=== PATIENT | male | born 1985 | race Caucasian/White ===

== ENCOUNTER 2018-05-16 15:20 | Emergency (ER) | payer SELFPAY ==
[2018-05-16 15:21] VITALS: BMI 21.4
[2018-05-16] MEDS ORDERED: Sodium Chloride 0.9% 1,000 ML IV STA (15:55)
--- NOTE | 2018-05-16 16:00 | ED PDOC ---
Arrival/HPI - General Historian: Patient - History of Present Illness Time/Duration: 4-6 hours Symptom Onset: Sudden Symptom Course: Unchanged Quality: Stabbing Severity Level: 10, Severe - General Chief Complaint: Back Pain Time Seen by Provider: 05/16/18 15:31 - History of Present Illness Narrative History of Present Illness (Text): 05/16/18 15:57 Patient is a 32 year old male with past medical history of nephrolithiasis who presents to the emergency department for left flank pain that started this morning. Patient states that when he woke up he starting experiencing left flank pain. Pain is non-radiating, 12/10 on pain scale. Described it as stabbing in nature, pain is worse with movement. He tried drinking water this morning but vomited shortly after. He states that he took a percocet at approximately 10am with minimal relief in symptoms. States that flank pain feels like when he had kidney stones before in the past. Admits to feeling nauseous. Denies fevers, chills, headaches, dizziness, cp, palpitations, sob, abdominal pain, hematuria, dysuria, changes in bowel habits. (Cynthia Barnett) Past Medical History - Provider Review Nursing Documentation Reviewed: Yes - Infectious Disease Hx of Infectious Diseases: None - Past Medical History Past Medical History: No Previous - Cardiac Hx Cardiac Disorders: No - Pulmonary Hx Respiratory Disorders: No - Neurological Hx Neurological Disorder: No - HEENT Hx HEENT Disorder: No - Renal Hx Kidney Stones: Yes - Endocrine/Metabolic Hx Endocrine Disorders: No - Hematological/Oncological Hx Blood Disorders: No - Integumentary Hx Dermatological Disorder: No - Musculoskeletal/Rheumatological Hx Musculoskeletal Disorders: No - Psychiatric Hx Substance Use: No - Surgical History Hx Appendectomy: Yes - Anesthesia Hx Anesthesia: Yes Hx Anesthesia Reactions: No Hx Malignant Hyperthermia: No Family/Social History - Physician Review Nursing Documentation Reviewed: Yes Family/Social History: Diabetes, Hypertension Smoking Status: Light Smoker < 10 Cigarettes Daily Hx Alcohol Use: Yes Hx Substance Use: No Hx Substance Use Treatment: No Allergies/Home Meds Allergies/Adverse Reactions: Allergies No Known Allergies Allergy (Verified 05/16/18 15:50) Home Medications: Home Meds Medication Instructions Recorded Confirmed oxyCODONE/Acetaminophen [Percocet 1 tab PO Q6 PRN 05/16/18 05/16/18 5/325 mg Tab] Review of Systems - Review of Systems Constitutional: Normal. absent: Fatigue, Fevers Eyes: Normal. absent: Vision Changes ENT: Normal. absent: Hearing Changes Respiratory: Normal. absent: SOB, Cough, Wheezing Cardiovascular: Normal. absent: Chest Pain, Palpitations, Calf Pain Gastrointestinal: Nausea, Vomiting. absent: Abdominal Pain, Constipation, Diarrhea Genitourinary Male: Normal. absent: Dysuria, Hematuria Musculoskeletal: Back Pain Skin: Normal. absent: Rash Neurological: Normal. absent: Headache, Dizziness Physical Exam Vital Signs Reviewed: Yes Temperature: Afebrile Blood Pressure: Normal Pulse: Regular Respiratory Rate: Normal Appearance: Positive for: Non-Toxic, Uncomfortable Pain Distress: Moderate Mental Status: Positive for: Alert and Oriented X 3 - Systems Exam Head: Present: Atraumatic, Normocephalic Pupils: Present: PERRL Extroacular Muscles: Present: EOMI Mouth: Present: Moist Mucous Membranes Neck: Present: Normal Range of Motion Respiratory/Chest: Present: Clear to Auscultation, Good Air Exchange. No: Respiratory Distress Cardiovascular: Present: Regular Rate and Rhythm, Normal S1, S2 Abdomen: Present: Normal Bowel Sounds. No: Tenderness, Distention Back: Present: CVA Tenderness (Left CVA tenderness) Upper Extremity: Present: Normal Inspection, Normal ROM Lower Extremity: Present: Normal Inspection, NORMAL PULSES. No: CALF TENDERNESS Neurological: Present: CN II-XII Intact Skin: Present: Warm, Dry, Normal Color. No: Rashes Psychiatric: Present: Alert, Oriented x 3 Vital Signs Temp Pulse Resp BP Pulse Ox 05/16/18 17:24 98 F 85 19 109/53 L 99 05/16/18 16:25 133/80 05/16/18 15:47 98 F 85 19 133/80 100 Medical Decision Making - Lab Interpretations I have reviewed the lab results: Yes - RAD Interpretation Graphic Artist: Radiologist ED Course and Treatment: 05/16/18 16:04 Patient is a 32 year old male with past medical history of nephrolithiasis who presents to the ED for left sided flank pain that started this morning. Patient states that pain is similar to when he had kidney stones before in the past. Will give Toradol 30mg IVP, Zofran 4mg IVP, NS bolus. Labs and CT abd/pelvis without contrast ordered. 05/16/18 16:40 CT abd/pelvis showing unilateral left obstructive uropathy related to proxiaml left uteral calculus (possible 2 adjacent) measuring 5 x 9 mm. Edematous left kidney noted. No focal urinoma identified. Non-obstructinf tract calculi bilaterally larger and more numerous on the left compared to right (see full report). Patient feeling better. Will discharge home with Motrin, percocet, zofran and flomax. Patient instructed to drink plenty of fluids, and follow up with urology within 3-4 days. Patient also instructed to establish care at the [facility]. (Cynthia Barnett) Seen and examined with resident. 32 year old M p/w L flank pain similar to previous kidney stones. On exam, CVA tenderness, no abdominal tenderness. (Brandyn Luna) - Lab Interpretations Lab Results: 05/16/18 16:00 05/16/18 16:00 Lab Results 05/16/18 16:00: Sodium 139, Potassium 4.1, Chloride 104, Carbon Dioxide 22, Anion Gap 18, BUN 11, Creatinine 1.2, Est GFR ( Amer) > 60, Est GFR (Non- Af Amer) > 60, Random Glucose 100, Calcium 9.5, Total Bilirubin 0.8, AST 27, ALT 52, Alkaline Phosphatase 86, Total Protein 7.9, Albumin 4.7, Globulin 3.2, Albumin/Globulin Ratio 1.4 05/16/18 16:00: WBC 11.8 H, RBC 5.02, Hgb 14.9, Hct 42.9, MCV 85.5, MCH 29.7, MCHC 34.7, RDW 12.4, Plt Count 307, MPV 9.8, Gran % 80.9 H, Lymph % (Auto) 13.2 L, [place] % (Auto) 5.2, Eos % (Auto) 0.5 L, Baso % (Auto) 0.2, Gran # 9.54 H, Lymph # (Auto) 1.6, [place] # (Auto) 0.6, Eos # (Auto) 0.1, Baso # (Auto) 0.02 - RAD Interpretation Radiology Orders: 05/16/18 15:56 ABD & PELVIS W/O PO OR IV CONT [CT] Stat - Medication Orders Current Medication Orders: Discontinued Medications Sodium Chloride (Sodium Chloride 0.9%) 1,000 mls @ 999 mls/hr IV .Q1H1M STA Stop: 05/16/18 16:55 Last Admin: 05/16/18 15:58 Dose: 999 mls/hr eMAR Start Stop Document 05/16/18 15:58 GMI (Rec: 05/16/18 15:59 GMI [id number]) Intravenous Solution Start Date 05/16/18 Start Time 15:58 End Date 05/16/18 End time 17:00 Total Infusion Time 62 Ketorolac Tromethamine (Toradol) 30 mg IVP STAT STA Stop: 05/16/18 15:56 Last Admin: 05/16/18 16:02 Dose: 30 mg MAR Pain Assessment Document 05/16/18 16:02 GMI (Rec: 05/16/18 16:03 GMI [id number]) Pain Reassessment Is this a pain reassessment? Yes Sleep Is patient sleeping during reassessment? No Presence of Pain Presence of Pain Yes Pain Scale Used Pain Scale Used Numeric Description Description Sharp Intensity of Pain at present 10 Pain Behavior Moaning Facial Grimacing Aggravating Factors Changing Position Alleviating Factors Medication IVP Administration Document 05/16/18 16:02 GMI (Rec: 05/16/18 16:03 GMI [id number]) Charges for Administration # of IVP Administrations 1 Ondansetron HCl (Zofran Inj) 4 mg IVP STAT STA Stop: 05/16/18 15:56 Last Admin: 05/16/18 16:03 Dose: 4 mg IVP Administration Document 05/16/18 16:03 GMI (Rec: 05/16/18 16:03 GMI [id number]) Charges for Administration # of IVP Administrations 1 Tamsulosin HCl (Flomax) 0.4 mg PO STAT STA Stop: 05/16/18 16:35 Last Admin: 05/16/18 17:18 Dose: 0.4 mg Disposition/Present on Arrival - Present on Arrival Any Indicators Present on Arrival: No History of DVT/PE: No History of Uncontrolled Diabetes: No Urinary Catheter: No History of Decub. Ulcer: No History Surgical Site Infection Following: None - Disposition Have Diagnosis and Disposition been Completed?: Yes Disposition Time: 16:33 Patient Plan: Discharge - Disposition Diagnosis: Nephrolithiasis Disposition: HOME/ ROUTINE Condition: GOOD Discharge Instructions (ExitCare): Kidney Stones in Adults Additional Instructions: Take Motrin and Percocet as needed for pain Please take Flomax daily and strain your urine for calculi We recommend that you follow up with Urology outpatient Establish care with [facility] Prescriptions: Ibuprofen [Motrin] 600 mg PO Q6H PRN #28 tab PRN Reason: Pain, Moderate (4-7) Ondansetron [Zofran] 4 mg PO Q8H #21 tab oxyCODONE/Acetaminophen [Percocet 5/325 mg Tab] 1 tab PO Q6 #10 tab Tamsulosin HCl [Flomax] 0.4 mg PO DAILY #10 cap.er.24h Referrals: Govind Wells MD [Staff Provider] - Follow up with primary [facility] [Provider Group] - Follow up with primary Forms: [employer] (Mongolian)
--- NOTE | 2018-05-16 16:29 | CT ---
Date of service: 05/16/2018 PROCEDURE: CT Abdomen and Pelvis without intravenous contrast HISTORY: left flank pain, history of nephrolithiasis COMPARISON: 05/11/2016 TECHNIQUE: Unenhanced study. Neither oral nor intravenous contrast administered. She Radiation dose: Total exam DLP = 335.66 mGy-cm. This CT exam was performed using one or more of the following dose reduction techniques: Automated exposure control, adjustment of the mA and/or kV according to patient size, and/or use of iterative reconstruction technique. FINDINGS: LOWER THORAX: Unremarkable. LIVER: Unremarkable. No gross lesion or ductal dilatation. GALLBLADDER AND BILE DUCTS: Unremarkable. PANCREAS: Unremarkable. No gross lesion or ductal dilatation. SPLEEN: Unremarkable. ADRENALS: Unremarkable. No mass. KIDNEYS AND URETERS: 5 x 9 mm obstructing calculus proximal left ureter. The left kidney is edematous. Additional lower tract calculi similar to those seen previously again identified. Right kidney in ureter: Solitary 3 mm midpole calculus nonobstructing. VASCULATURE: Unremarkable. No aortic aneurysm. BOWEL: Unremarkable. No obstruction. No gross mural thickening. APPENDIX: Multiple tiny appendicoliths similar to that seen previously. No acute inflammatory component. PERITONEUM: Unremarkable. No free fluid. No free air. LYMPH NODES: Unremarkable. No enlarged lymph nodes. BLADDER: Unremarkable. REPRODUCTIVE: Unremarkable. BONES: No acute fracture. OTHER FINDINGS: Subcutaneous sinus tract or area of scarring anterior- lateral left lower abdominal wall extending to the rectus muscle. This is not felt to be clinically relevant. IMPRESSION: Unilateral, left obstructive uropathy related to proximal left ureteral calculus (possibly 2 adjacent calculi) measuring 5 x 9 mm. Edematous left kidney noted. No focal urinoma identified. Nonobstructing upper tract calculi bilaterally larger and more numerous on the left compared to right.
[2018-05-16 16:49] LABS: BASO # 0.02 K/mm3 (0.0-2.0); BASO % 0.2 % (0.0-3.0); EOS # 0.1 (0.0-0.7); EOS % 0.5 % (1.5-5.0); GRAN # 9.54 (1.4-6.5); GRAN % 80.9 % (50.0-68.0); HEMOGLOBIN 14.9 g/dL (14.0-18.0); LYMPH # 1.6 (1.2-3.4); LYMPH % 13.2 % (22.0-35.0); MEAN CELL VOLUME 85.5 fl (80.0-105.0); MEAN CORPUSCULAR HEMOGLOBIN 29.7 pg (25.0-35.0); MEAN CORPUSCULAR HGB CONC 34.7 g/dl (31.0-37.0); MEAN PLATELET VOLUME 9.8 fl (7.0-11.0); MONO # 0.6 (0.1-0.6); MONO % 5.2 % (1.0-6.0); RBC 5.02 10^6/uL (3.5-6.1); RED CELL DISTRIBUTION WIDTH 12.4 % (11.5-14.5); WHITE BLOOD COUNT 11.8 10^3/ul (4.5-11.0)
[2018-05-16 17:01] LABS: ALB/GLOB RATIO 1.4 (1.1-1.8); ALBUMIN 4.7 g/dL (3.0-4.8); ALT/SGPT 52 U/L (7-56); AST/SGOT 27 U/L (17-59); BLOOD UREA NITROGEN 11 mg/dL (7-21); CALCIUM 9.5 mg/dL (8.4-10.5); GFR AFRICAN-AMERICAN > 60; GFR NON-AFRICAN AMERICAN > 60
[2018-05-16 17:25] VITALS: BP 109/53; PULSE 85; RESP 19; TEMP 98; O2SAT 99
[2018-05-16 19:06] LABS: PH,URINE 7.5 (4.7-8.0); URINE BILIRUBIN NEGATIVE (NEGATIVE); URINE BLOOD LARGE (NEGATIVE); URINE GLUCOSE (UA) NEGATIVE (NEGATIVE); URINE LEUKOCYTE ESTERASE NEGATIVE Leu/uL (NEGATIVE); URINE PROTEIN NEGATIVE mg/dL (<30 mg/dL); URINE UROBILINOGEN 0.2 E.U./dL (<1 E.U./dL)
[2018-05-16 19:17] LABS: URINE APPEARANCE CLEAR (CLEAR); URINE COLOR YELLOW (YELLOW)
[2018-05-16 19:33] LABS: URINE BACTERIA FEW (NEG); URINE RBC 25 - 30 /hpf (0-2)
[2018-05-16 19:34] LABS: URINE CALCIUM OXALATE CRYSTALS SMALL /hpf
== END 2018-05-16 17:26 | disposition home or self-care (01) ==
LOC: ED 15:20
DX: N20.0 Calculus of kidney (principal)
CPT/HCPCS: 74176; 80053; 81001; 85025; 96361; 96374; 96375; 99283; J1885; J2405; J7030